=== PATIENT | male | born 1970 | race Caucasian/White ===

== ENCOUNTER 2020-11-19 09:09 | Inpatient (IN) | payer BC ==
[~2020-11-19] VITALS: Ht 175.3 cm; Wt 100.0 kg
[~2020-11-19 09:09] MED LIST: HYDR-4353 PO
[2020-11-19] MEDS ORDERED: magnesium 2GM in 50ml NS 50 ML IV ONE (09:40)
[2020-11-19] MEDS ORDERED: normal saline 1000ML IV soln IVB ONE (09:40)
[2020-11-19] MEDS ORDERED: aspirin 81mg tab.chew PO ONE (09:45)
[2020-11-19] MEDS ORDERED: diltiazem 5mg/ml 5ml inj. IV ONE ×4 (09:45→10:15)
[2020-11-19 10:19] LABS: BASOPHILS # (AUTO) 0.1 X10'3 (0-0.2); BASOPHILS % (AUTO) 0.5 % (0-1); EOSINOPHILS # (AUTO) 0.2 X10'3 (0-0.9); EOSINOPHILS % (AUTO) 1.3 % (0-6); HEMATOCRIT 48.4 % (42.0-52.0); HEMOGLOBIN 16.7 g/dl (14.0-17.9); LYMPHOCYTES # (AUTO) 2.1 X10'3 (1.1-4.8); LYMPHOCYTES % (AUTO) 16.6 % (21-51); MEAN CORPUSCULAR HEMOGLOBIN 28.9 PG (27.0-31.0); MEAN CORPUSCULAR HGB CONC 34.5 g/dL (33.0-36.5); MEAN CORPUSCULAR VOLUME 83.9 FL (78-98); MEAN PLATELET VOLUME 8.3 FL (7.4-10.4); MONOCYTES % (AUTO) 7.6 % (2-12); NEUTROPHILS # (AUTO) 9.2 X10'3 (1.8-7.7); PLATELET COUNT 228 X10'3 (140-440); RED BLOOD COUNT 5.77 X10'6 (4.70-6.10); RED CELL DISTRIBUTION WIDTH 13.6 % (11.5-14.5); WHITE BLOOD COUNT 12.4 X10'3 (4.5-11.0)
[2020-11-19 10:31] LABS: PARTIAL THROMBOPLASTIN TIME 25 SECONDS (22-32)
[2020-11-19 10:36] LABS: ALANINE AMINOTRANSFERASE 65 U/L (12-78); ALBUMIN/GLOBULIN RATIO 1.1 (1.1-1.5); ALKALINE PHOSPHATASE 81 IU/L (46-116); ANION GAP 10 (8-16); ASPARTATE AMINO TRANSFERASE 40 U/L (10-37); BILIRUBIN,TOTAL 0.8 MG/DL (0.1-1.0); BLOOD UREA NITROGEN 15 MG/DL (7-18); BUN/CREATININE RATIO 13.9 (5.4-32.0); CALCIUM 9.2 MG/DL (8.5-10.1); CHLORIDE 107 MMOL/L (99-107); CREATININE 1.08 MG/DL (0.60-1.10); GLUCOSE 106 MG/DL (70-104); POTASSIUM 4.7 MMOL/L (3.5-5.1); SODIUM 141 MMOL/L (135-145); TOTAL PROTEIN 7.6 G/DL (6.4-8.2); eGFR 72 ML/MIN
[2020-11-19 10:37] LABS: D-DIMER < 0.19 MG/L FEU (0-0.50)
[2020-11-19 10:43] LABS: ETHANOL < 0.010 GM/DL (0.0-0.010); MAGNESIUM 1.9 MG/DL (1.5-2.4)
[2020-11-19] MEDS ORDERED: enoxaparin 100mg/ml syringe SUBCUT ONE (11:00)
[2020-11-19 11:01] LABS: CLARITY,URINE CLEAR (Clear); COLOR,URINE YELLOW (Yellow); GLUCOSE, URINE NEGATIVE (Neg); KETONES,URINE NEGATIVE (Neg); LEUKOCYTE ESTERASE ,URINE NEGATIVE (Neg); NITRITES, URINE NEGATIVE (Neg); OCCULT BLOOD,URINE NEGATIVE (Neg); PH,URINE 5.5 (4.8-8.0); PROTEIN,URINE NEGATIVE (Neg); UROBILINOGEN,URINE 0.2 E.U/dL (0.2-1.0)
[2020-11-19 11:03] LABS: UA COLLECTION TYPE CLN CATCH MIDSTREAM
[2020-11-19 11:12] LABS: URINE AMPHETAMINE SCREEN NEGATIVE (Neg); URINE BARBITUATE SCREEN NEGATIVE (Neg); URINE BENZODIAZEPINES SCREEN NEGATIVE (Neg); URINE CANNABINOID SCREEN NEGATIVE (Neg); URINE COCAINE SCREEN NEGATIVE (Neg); URINE METHADONE SCREEN NEGATIVE (Neg); URINE OPIATE SCREEN NEGATIVE (Neg); URINE PHENCYCLIDINE SCREEN NEGATIVE (Neg)
[2020-11-19] MEDS: diltiazem-NS 100mg/100ml 100 ML IV PRN ×3 (11:19→18:42)
[2020-11-19] MEDS ORDERED: magnesium Cl slow-release 64mg tablet PO PRN (11:30)
[2020-11-19] MEDS ORDERED: potassium Cl 40MEQ/1/2NS 520ml 520 ML IV PRN ×2 (11:30)
[2020-11-19] MEDS ORDERED: potassium Cl 20 mEq SR tablet PO PRN ×2 (11:30)
[2020-11-19] MEDS ORDERED: magnesium 4gm in 100ml NS 100 ML IV PRN (11:30)
[2020-11-19] MEDS ORDERED: ondansetron/PF 4mg/2ml inj IV PRN (11:30)
[2020-11-19] MEDS ORDERED: morphine 2 MG/ML inj. syringe IV PRN (11:30)
[2020-11-19] MEDS ORDERED: acetaminophen 325mg tablet PO PRN (11:30)
[2020-11-19] MEDS ORDERED: magnesium 2GM in 50ml NS 50 ML IV PRN (11:30)
[2020-11-19] MEDS ORDERED: OXYC10TA47 PO (12:53)
[2020-11-19] MEDS ORDERED: amiodarone 200mg tablet PO SCH ×2 (17:40→19:30)
--- NOTE | 2020-11-19 18:45 | NUR ---
I have received report from Lyle CARPENTER by telephone from ER and had the opportunity to ask questions and awaiting patient's arrival to unit.
--- NOTE | 2020-11-19 19:21 | NUR ---
HR 180s PAGER ID: [phone] MESSAGE: [id number] Lyle Arora: HR going up to the 180s, lots of PVCs, Cardizem at 15ml/hr. Can we up the Cardizem or give a push? Vera CARPENTER [phone]
[2020-11-19] MEDS ORDERED: metoprolol succinate 25mg (24-HOUR) SR. Tablet PO SCH (19:30)
[2020-11-19] MEDS ORDERED: metoprolol tartrate 1mg/ml inj IV ONE (19:30)
[2020-11-19] MEDS ORDERED: LORazepam 2 mg/ml vial IV PRN (19:35)
[2020-11-19 19:38] VITALS: BP 142/71
[2020-11-19] MEDS ORDERED: amiodarone 150mg/dext, iso-os 100 ML IV ONE (19:55)
[2020-11-19 20:00] VITALS: BP 134/86
[2020-11-19] MEDS ORDERED: metoprolol tartrate 25mg tablet PO SCH (20:00)
[2020-11-19] MEDS: K and/or MAG REPLACEMENT MC SCH (20:00)
[2020-11-19 21:00] VITALS: BP 150/94
--- NOTE | 2020-11-19 21:00 | NUR ---
NEW ORDERS MD Martinez telephoned new orders: Stop Cardizem drip and start on Amiodarone drip with loading dose and continue by protocol. To discontinue PO Amiodarone, Toprol XL, and Metoprolol. MD Martinez also stated that she will call for cardiology consult with MD Vega. MD Vega came to see the patient. is aware of V-tach runs and heart rate changes, also that the Cardizem drip was stopped and Amiodarone loading dose has already been started. MD Vega ordered for echo in AM, lab draws for T4/3 and TSH to be drawn, also start the Amiodarone drip at 2mg/hour. MD Vega also stated that he does not want to be called tonight if the patient converts to sinus rhythm.
[2020-11-19] MEDS: amiodarone/D5 360MG/200ML BAG 200 ML IV SCH (21:01)
[2020-11-19 22:00] VITALS: BP 141/98
--- NOTE | 2020-11-19 22:33 | NUR ---
Troponin 0.59 PAGER ID: [phone] MESSAGE: [id number] Lyle Arora: Troponin 0.59, still trending up, would you like to order another one? VANCE Martinez called and changed orders, patient now on Amiodarone drip; starting at 2mg/min per MD Vega orders. eVra CARPENTER [phone]
[2020-11-19 23:00] VITALS: BP 138/107
[2020-11-19] MEDS: LORazepam 1 MG tablet PO PRN (23:13)
[2020-11-20] VITALS (12 sets, daily range): BP systolic 117–159; BP diastolic 85–106
[2020-11-20] MEDS: amiodarone/D5 360MG/200ML BAG 200 ML IV SCH ×9 (00:06→23:12)
--- NOTE | 2020-11-20 03:04 | NUR ---
Amiodarone protocol Per protocol, the patient's dose is to be half. Amiodarone is decreased to 1mg/min. Will continue to monitor patient.
--- NOTE | 2020-11-20 04:44 | NUR ---
Vtach runs PAGER ID: [phone] MESSAGE: [id number] Lyle Arora: Amiodarone was decreased from 2 to 1mg/min per protocol and is now having long runs of v tach. Would you like me to change it back to 2? Vera CARPENTER [phone]
--- NOTE | 2020-11-20 05:49 | NUR ---
Chest pain/pressure PAGER ID: [phone] MESSAGE: [id number] UlyssesLyle: HR 140s, Afib with BBB, Patient now states he has a feeling of pressure on his chest, pain of 4-5 and doesn't want pain medication. Would you like to order anything? Vera CARPENTER [phone]
--- NOTE | 2020-11-20 05:52 | NUR ---
No new orders MD Leigh called back stating that "if the patient isn't concerned, we will not be concerned and to keep an eye of the vital signs." patient is stating that he is okay and doesn't want pain medications. Will continue to monitor.
--- NOTE | 2020-11-20 06:00 | NUR ---
Problems reprioritized. Patient report given, questions answered & plan of care reviewed with Johanny CARPENTER. Patient stated that chest pain was worse and would like pain medication for it, pain level 5 that comes and goes, morphine was given.
--- NOTE | 2020-11-20 06:40 | NUR ---
Patient in room PCU 3012. I have received report from Vera CARPENTER and had the opportunity to ask questions and assume patient care.
--- NOTE | 2020-11-20 06:55 | NUR ---
Page Sent promotional table spacer PAGER ID: [phone] MESSAGE: [id number] [place]. Pt HR trending 150-160. BP 114/93. C/o of chest pressure. Morphine given and he feels a little better. Pt in Afib with BBB. Pt on amio gtt @2 . Johanny [phone]
[2020-11-20] MEDS ORDERED: metoprolol tartrate 1mg/ml inj IV ONE (07:45)
[2020-11-20 07:52] LABS: BASOPHILS % (AUTO) 0.4 % (0-1); EOSINOPHILS # (AUTO) 0.1 X10'3 (0-0.9); EOSINOPHILS % (AUTO) 0.9 % (0-6); HEMATOCRIT 46.3 % (42.0-52.0); LYMPHOCYTES # (AUTO) 1.5 X10'3 (1.1-4.8); LYMPHOCYTES % (AUTO) 11.3 % (21-51); MEAN CORPUSCULAR HEMOGLOBIN 29.1 PG (27.0-31.0); MEAN CORPUSCULAR HGB CONC 34.6 g/dL (33.0-36.5); MEAN CORPUSCULAR VOLUME 84.2 FL (78-98); MEAN PLATELET VOLUME 8.8 FL (7.4-10.4); MONOCYTES # (AUTO) 0.8 X10'3 (0-0.9); MONOCYTES % (AUTO) 6.3 % (2-12); NEUTROPHILS # (AUTO) 10.7 X10'3 (1.8-7.7); NEUTROPHILS % (AUTO) 81.1 % (42-75); PLATELET COUNT 195 X10'3 (140-440); RED CELL DISTRIBUTION WIDTH 13.5 % (11.5-14.5); WHITE BLOOD COUNT 13.2 X10'3 (4.5-11.0)
[2020-11-20] MEDS: nitroGLYCERIN 0.4mg/hour patch TD SCH (08:00)
[2020-11-20] MEDS ORDERED: amiodarone 200mg tablet PO SCH (08:00)
[2020-11-20] MEDS: K and/or MAG REPLACEMENT MC SCH ×2 (08:00→20:00)
[2020-11-20 08:29] LABS: ALBUMIN 3.5 G/DL (3.4-5.0); ANION GAP 9 (8-16); BLOOD UREA NITROGEN 14 MG/DL (7-18); BUN/CREATININE RATIO 15.1 (5.4-32.0); CALCIUM 8.4 MG/DL (8.5-10.1); CHLORIDE 106 MMOL/L (99-107); CHOL/HDL RATIO 3.3 (0.00-4.99); CHOLESTEROL 157 MG/DL (0-200); CREATININE 0.93 MG/DL (0.60-1.10); GLUCOSE 115 MG/DL (70-104); HDL CHOLESTEROL 47 MG/DL (35-60); LDL CHOLESTEROL 75 MG/DL (50-100); LIPASE 85 U/L (73-393); MAGNESIUM 2.1 MG/DL (1.5-2.4); POTASSIUM 3.6 MMOL/L (3.5-5.1); SODIUM 139 MMOL/L (135-145); TRIGLYCERIDES 275 MG/DL (20-135); eGFR 86 ML/MIN
[2020-11-20] MEDS ORDERED: oxyCODONE IR 5mg (immed. release) tablet PO PRN (15:05)
[2020-11-20] MEDS: metoprolol tartrate 25mg tablet PO SCH ×2 (15:29→19:21)
[2020-11-20] MEDS ORDERED: ondansetron 4mg rapidly disintigrating tab PO PRN (15:50)
--- NOTE | 2020-11-20 18:00 | NUR ---
Patient in room PCU 3012. I have received report from Kayleigh CARPENTER and had the opportunity to ask questions and assume patient care.
--- NOTE | 2020-11-20 18:01 | NUR ---
Problems reprioritized. Patient report given, questions answered & plan of care reviewed with Vera CARPENTER.
[2020-11-20] MEDS: LORazepam 1 MG tablet PO PRN (22:22)
[2020-11-21] VITALS: BP 144/106
[2020-11-21] MEDS: amiodarone/D5 360MG/200ML BAG 200 ML IV SCH ×2 (01:40→04:50)
[2020-11-21 02:00] VITALS: BP 133/88
[2020-11-21 04:00] VITALS: BP 125/92
--- NOTE | 2020-11-21 06:15 | NUR ---
Problems reprioritized. Patient report given, questions answered & plan of care reviewed with Kayleigh CARPENTER.
--- NOTE | 2020-11-21 06:17 | NUR ---
Patient in room PCU 3012. I have received report from Vera CARPENTER and had the opportunity to ask questions and assume patient care.
[2020-11-21 07:00] VITALS: BP 164/109
[2020-11-21] MEDS: metoprolol tartrate 25mg tablet PO SCH (07:10)
[2020-11-21] MEDS: nitroGLYCERIN 0.4mg/hour patch TD SCH (07:11)
[2020-11-21] MEDS ORDERED: amiodarone 200mg tablet PO SCH (08:00)
[2020-11-21] MEDS: K and/or MAG REPLACEMENT MC SCH (08:00)
[2020-11-21 08:02] LABS: BASOPHILS % (AUTO) 0.3 % (0-1); EOSINOPHILS # (AUTO) 0.1 X10'3 (0-0.9); EOSINOPHILS % (AUTO) 0.7 % (0-6); HEMATOCRIT 45.7 % (42.0-52.0); HEMOGLOBIN 15.9 g/dl (14.0-17.9); LYMPHOCYTES % (AUTO) 12.1 % (21-51); MEAN CORPUSCULAR HEMOGLOBIN 29.4 PG (27.0-31.0); MEAN CORPUSCULAR HGB CONC 34.9 g/dL (33.0-36.5); MEAN CORPUSCULAR VOLUME 84.3 FL (78-98); MEAN PLATELET VOLUME 8.4 FL (7.4-10.4); MONOCYTES # (AUTO) 0.6 X10'3 (0-0.9); NEUTROPHILS # (AUTO) 6.7 X10'3 (1.8-7.7); NEUTROPHILS % (AUTO) 79.9 % (42-75); PLATELET COUNT 162 X10'3 (140-440); RED BLOOD COUNT 5.42 X10'6 (4.70-6.10); RED CELL DISTRIBUTION WIDTH 13.2 % (11.5-14.5); WHITE BLOOD COUNT 8.4 X10'3 (4.5-11.0)
[2020-11-21 08:05] LABS: ALBUMIN 3.3 G/DL (3.4-5.0); ANION GAP 6 (8-16); BLOOD UREA NITROGEN 9 MG/DL (7-18); CHLORIDE 105 MMOL/L (99-107); GLUCOSE 103 MG/DL (70-104); MAGNESIUM 2.4 MG/DL (1.5-2.4); POTASSIUM 3.6 MMOL/L (3.5-5.1); SODIUM 140 MMOL/L (135-145); TOTAL CARBON DIOXIDE 28.6 MMOL/L (24-32); eGFR 79 ML/MIN
--- NOTE | 2020-11-21 08:34 | NUR ---
amio gtt stopped at 0815
[2020-11-21 11:00] VITALS: BP 141/96
[2020-11-21] MEDS ORDERED: metoprolol tartrate tablet PO (11:42)
[2020-11-21] MEDS ORDERED: AMIO200T67 PO (11:42)
[2020-11-21] MEDS ORDERED: APIX5TAB3 PO (11:43)
--- NOTE | 2020-11-21 14:08 | NUR ---
patient dc to home. his son picked him up, PIV was removed with cannula intact. Patient has appt with [facility] on next . DC instructions were reviewed with the patient and he verbalized understanding of worsening s/s and when to call his doc or come back to the ED. pt alert, oriented, and appropriated at time of dc.
--- NOTE | 2020-11-21 17:31 | NUR ---
had to get back into chart to see metoprolol rx so i could call it in to [facility] it did not get sent over with the others
== END 2020-11-21 13:38 | disposition home or self-care (01) | DRG 281 ==
LOC: ER 09:10 → ED HOLD 11:26 → PCU 3S 18:00
PROVIDERS: ADMIT Internal Medicine; ATTEND Internal Medicine
DX: I21.4 Non-ST elevation (NSTEMI) myocardial infarction (principal); I42.9 Cardiomyopathy, unspecified; I47.1 Supraventricular tachycardia; I21.A1 Myocardial infarction type 2; I48.0 Paroxysmal atrial fibrillation; F10.10 Alcohol abuse, uncomplicated; F32.9 Major depressive disorder, single episode, unspecified; M54.9 Dorsalgia, unspecified; G89.29 Other chronic pain; Z79.01 Long term (current) use of anticoagulants; Z79.82 Long term (current) use of aspirin; Z79.899 Other long term (current) drug therapy; Z88.8 Allergy status to other drugs, medicaments and biological substances
CPT/HCPCS: 36415; 71045; 80048; 80053; 80061; 80305; 80320; 81003; 83690; 83735; 83880; 84439; 84443; 84479; 84484; 85025; 85379; 85610; 85730; 87081; 93005; 93306; 93308; 96365; 96375; 99291; G0378; J1650; J2270; J3475; J3490; J7030

== ENCOUNTER 2021-07-02 12:17 | Inpatient (IN) | payer BC ==
[~2021-07-02] VITALS: Ht 175.3 cm; Wt 95.5 kg
[~2021-07-02 12:17] MED LIST changes: +AMIO200T67 PO; +APIX5TAB3 PO; -HYDR-4353 PO; +OXYC10TA47 PO; +metoprolol tartrate tablet PO
[2021-07-02 13:08] LABS: BASOPHILS % (AUTO) 0.4 % (0-1); EOSINOPHILS % (AUTO) 0.3 % (0-6); HEMOGLOBIN 16.8 g/dl (14.0-17.9); LYMPHOCYTES # (AUTO) 1.5 X10'3 (1.1-4.8); LYMPHOCYTES % (AUTO) 13.4 % (21-51); MEAN CORPUSCULAR HEMOGLOBIN 28.9 PG (27.0-31.0); MEAN CORPUSCULAR HGB CONC 34.4 g/dL (33.0-36.5); MEAN CORPUSCULAR VOLUME 84.2 FL (78-98); MEAN PLATELET VOLUME 8.2 FL (7.4-10.4); MONOCYTES # (AUTO) 0.9 X10'3 (0-0.9); MONOCYTES % (AUTO) 8.4 % (2-12); NEUTROPHILS # (AUTO) 8.6 X10'3 (1.8-7.7); NEUTROPHILS % (AUTO) 77.5 % (42-75); PLATELET COUNT 252 X10'3 (140-440); RED BLOOD COUNT 5.82 X10'6 (4.70-6.10); WHITE BLOOD COUNT 11.1 X10'3 (4.5-11.0)
[2021-07-02 13:25] LABS: ALANINE AMINOTRANSFERASE 42 U/L (12-78); ALBUMIN 3.5 G/DL (3.4-5.0); ALKALINE PHOSPHATASE 85 IU/L (46-116); ANION GAP 10 (8-16); ASPARTATE AMINO TRANSFERASE 28 U/L (10-37); BILIRUBIN,TOTAL 1.5 MG/DL (0.1-1.0); BLOOD UREA NITROGEN 15 MG/DL (7-18); BUN/CREATININE RATIO 11.7 (5.4-32.0); CALCIUM 8.1 MG/DL (8.5-10.1); CHLORIDE 106 MMOL/L (99-107); CREATININE 1.28 MG/DL (0.60-1.10); GLUCOSE 127 MG/DL (70-104); POTASSIUM 3.9 MMOL/L (3.5-5.1); SODIUM 141 MMOL/L (135-145); TOTAL CARBON DIOXIDE 24.6 MMOL/L (24-32); eGFR 59 ML/MIN
[2021-07-02 13:32] LABS: MAGNESIUM 2.3 MG/DL (1.5-2.4)
--- NOTE | 2021-07-02 14:44 | NUR ---
First interaction with pt. at my arrival in room pt's HR 185/min tachy AVR. Primary RN at bedside at this time notified and Md Isaacs notified/
[2021-07-02] MEDS: metoprolol tartrate 1mg/ml inj IV PRN ×3 (14:50→15:39)
--- NOTE | 2021-07-02 15:01 | NUR ---
Pt placed on head of conservation cart and adult pads placed on chest
[2021-07-02] MEDS ORDERED: aspirin 81mg tab.chew PO ONE (15:35)
[2021-07-02] MEDS ORDERED: ondansetron/PF 4mg/2ml inj IV PRN (16:40)
[2021-07-02] MEDS ORDERED: potassium Cl 40MEQ/1/2NS 520ml 520 ML IV PRN ×2 (16:40)
[2021-07-02] MEDS ORDERED: mag hydrox/Alum hydrox/simeth 30ml oral suspension PO PRN (16:40)
[2021-07-02] MEDS ORDERED: bisacodyl 10mg suppository rectal RC PRN (16:40)
[2021-07-02] MEDS ORDERED: metoclopramide 5 mg/ml inj IV PRN (16:40)
[2021-07-02] MEDS ORDERED: magnesium Cl slow-release 64mg tablet PO PRN (16:40)
[2021-07-02] MEDS ORDERED: potassium Cl 20 mEq SR tablet PO PRN ×2 (16:40)
[2021-07-02] MEDS ORDERED: magnesium 2GM in 50ml NS 50 ML IV PRN (16:40)
[2021-07-02] MEDS ORDERED: magnesium hydroxide 30ml (MOM) UD suspension PO PRN (16:40)
[2021-07-02] MEDS ORDERED: acetaminophen 325mg tablet PO PRN (16:40)
[2021-07-02] MEDS ORDERED: magnesium 4gm in 100ml NS 100 ML IV PRN (16:40)
[2021-07-02] MEDS ORDERED: APIX5TAB3 PO (16:56)
[2021-07-02] MEDS ORDERED: OXYC5CAP19 PO (16:56)
[2021-07-02] MEDS ORDERED: FLEC100T PO (16:56)
[2021-07-02] MEDS ORDERED: METO25TA6 PO (16:56)
[2021-07-02] MEDS ORDERED: oxyCODONE IR 5mg (immed. release) tablet PO PRN (17:00)
[2021-07-02] MEDS ORDERED: diltiazem-NS 100mg/100ml 100 ML IV SCH ×2 (17:15→21:10)
--- NOTE | 2021-07-02 18:03 | NUR ---
PAGE SENT TO DR HUBBARD REGARDING HR 155. PAT SLEEPING, NO SIGNS OF DISTRESS NOTED.
--- NOTE | 2021-07-02 18:09 | NUR ---
SPOKE WITH DR STEVIE MD TO ENTER ORDERS.
[2021-07-02] MEDS ORDERED: digoxin 250mcg/ml 2ml ampule IV ONE (18:40)
[2021-07-02] MEDS: K and/or MAG REPLACEMENT MC SCH (20:00)
[2021-07-02] MEDS: apixaban 5mg tablet PO SCH (20:39)
[2021-07-02] MEDS: metoprolol tartrate 25mg tablet PO SCH (20:40)
[2021-07-02] MEDS ORDERED: temazepam 15mg capsule PO PRN (21:00)
--- NOTE | 2021-07-02 21:09 | NUR ---
Hannah Angelms [phone]
[2021-07-02] MEDS ORDERED: amiodarone 150mg/dext, iso-os 100 ML IV ONE (21:50)
[2021-07-02] MEDS: amiodarone/D5 360MG/200ML BAG 200 ML IV SCH (22:10)
--- NOTE | 2021-07-02 22:31 | NUR ---
Conversion to NSR after initiation of amio drip
[2021-07-03 00:27] LABS: BASOPHILS # (AUTO) 0.1 X10'3 (0-0.2); BASOPHILS % (AUTO) 0.6 % (0-1); EOSINOPHILS # (AUTO) 0.1 X10'3 (0-0.9); HEMATOCRIT 45.2 % (42.0-52.0); HEMOGLOBIN 15.7 g/dl (14.0-17.9); LYMPHOCYTES # (AUTO) 1.9 X10'3 (1.1-4.8); LYMPHOCYTES % (AUTO) 21.2 % (21-51); MEAN CORPUSCULAR HEMOGLOBIN 28.8 PG (27.0-31.0); MEAN CORPUSCULAR HGB CONC 34.8 g/dL (33.0-36.5); MEAN CORPUSCULAR VOLUME 82.8 FL (78-98); MEAN PLATELET VOLUME 8.2 FL (7.4-10.4); MONOCYTES # (AUTO) 0.7 X10'3 (0-0.9); MONOCYTES % (AUTO) 8.1 % (2-12); NEUTROPHILS # (AUTO) 6.1 X10'3 (1.8-7.7); NEUTROPHILS % (AUTO) 69.1 % (42-75); PLATELET COUNT 180 X10'3 (140-440); RED BLOOD COUNT 5.46 X10'6 (4.70-6.10); RED CELL DISTRIBUTION WIDTH 14.1 % (11.5-14.5); WHITE BLOOD COUNT 8.9 X10'3 (4.5-11.0)
[2021-07-03 00:47] LABS: ALANINE AMINOTRANSFERASE 35 U/L (12-78); ALBUMIN 3.1 G/DL (3.4-5.0); ALBUMIN/GLOBULIN RATIO 0.9 (1.1-1.5); ALKALINE PHOSPHATASE 78 IU/L (46-116); ANION GAP 10 (8-16); ASPARTATE AMINO TRANSFERASE 24 U/L (10-37); BLOOD UREA NITROGEN 16 MG/DL (7-18); CALCIUM 7.9 MG/DL (8.5-10.1); CHLORIDE 107 MMOL/L (99-107); CREATININE 1.14 MG/DL (0.60-1.10); GLUCOSE 110 MG/DL (70-104); MAGNESIUM 2.2 MG/DL (1.5-2.4); POTASSIUM 3.7 MMOL/L (3.5-5.1); SODIUM 142 MMOL/L (135-145); TOTAL CARBON DIOXIDE 25.5 MMOL/L (24-32); TOTAL PROTEIN 6.5 G/DL (6.4-8.2); eGFR 68 ML/MIN
[2021-07-03 01:43] VITALS: BP 136/95
[2021-07-03 02:00] VITALS: BP 124/91
[2021-07-03] MEDS: digoxin 250mcg/ml 2ml ampule IV SCH ×2 (02:00→08:00)
--- NOTE | 2021-07-03 02:54 | NUR ---
PAGER ID: [phone] MESSAGE: Lyle Arora 50M [id number] Admit chest pn/Afib w/RVR. Pt in sinus rhythm, BP 135/92; HR 70. There is digoxin IV due now, do you want to hold? Thank you, Aleksandra [phone]
--- NOTE | 2021-07-03 02:55 | NUR ---
Dr Triana called back to hold the digoxin.
[2021-07-03 04:00] VITALS: BP 136/88
[2021-07-03] MEDS: amiodarone/D5 360MG/200ML BAG 200 ML IV SCH (04:25)
--- NOTE | 2021-07-03 06:27 | NUR ---
Patient in room U 3027. I have received report from Aleksandra CARPENTER and had the opportunity to ask questions and assume patient care. Patient sleeping in bed and in no acute distress.
--- NOTE | 2021-07-03 06:46 | NUR ---
Problems reprioritized. Patient report given, questions answered & plan of care reviewed with PAULINE Juan.
[2021-07-03 07:00] VITALS: BP 143/96
[2021-07-03] MEDS: K and/or MAG REPLACEMENT MC SCH (07:50)
[2021-07-03] MEDS: metoprolol tartrate 25mg tablet PO SCH (07:55)
[2021-07-03] MEDS: apixaban 5mg tablet PO SCH (07:55)
[2021-07-03 11:00] VITALS: BP 131/96
[2021-07-03] MEDS ORDERED: FLEC50TA28 PO (12:22)
[2021-07-03] MEDS ORDERED: flecainide 50mg tablet PO SCH (12:35)
--- NOTE | 2021-07-03 15:38 | NUR ---
Patient was dc to home and left with his . PIV was removed with cannula intact. RX were sent to [facility] on [address] in [place]. DC instructions and warning s/s were reviewed with the patient and he verbalized understanding. Patient is alert, oriented, and appropriate at time of dc.
[2021-07-04] MEDS ORDERED: digoxin 250mcg/ml 2ml ampule IV SCH (08:00)
== END 2021-07-03 15:16 | disposition home or self-care (01) | DRG 281 ==
LOC: ER 12:19 → ED HOLD 16:39 → UNDOADMIN 16:39 → EDBEDREQ 07-03 00:54 → PCU 3S 07-03 01:15
PROVIDERS: ADMIT Family Medicine; ATTEND Family Medicine
DX: I48.0 Paroxysmal atrial fibrillation (principal); I21.A1 Myocardial infarction type 2; N17.9 Acute kidney failure, unspecified; I10 Essential (primary) hypertension; I44.7 Left bundle-branch block, unspecified; F32.9 Major depressive disorder, single episode, unspecified; G89.29 Other chronic pain; M54.9 Dorsalgia, unspecified; R00.0 Tachycardia, unspecified; Z79.899 Other long term (current) drug therapy; Z79.01 Long term (current) use of anticoagulants
CPT/HCPCS: 36415; 71045; 80053; 80162; 83735; 83880; 84484; 85025; 87081; 93005; 96375; 99291; G0378; J1160; J3490

== ENCOUNTER 2023-01-03 07:19 | Emergency (ER) | payer BC ==
[~2023-01-03] VITALS: Ht 175.3 cm; Wt 100.0 kg
[~2023-01-03 07:19] MED LIST changes: -AMIO200T67 PO; +FLEC50TA28 PO; +METO25TA6 PO; -OXYC10TA47 PO; +OXYC5CAP19 PO; -metoprolol tartrate tablet PO
[2023-01-03] MEDS ORDERED: diltiazem 5mg/ml 5ml inj. IV ONE ×2 (07:35→08:40)
[2023-01-03] MEDS ORDERED: normal saline 1000ml 1,000 ML IV ONE (07:35)
[2023-01-03 07:45] LABS: BASOPHILS # (AUTO) 0.1 X10'3 (0-0.2); BASOPHILS % (AUTO) 0.4 % (0-1); EOSINOPHILS # (AUTO) 0.2 X10'3 (0-0.9); EOSINOPHILS % (AUTO) 1.3 % (0-6); HEMATOCRIT 51.6 % (42.0-52.0); HEMOGLOBIN 17.8 g/dl (14.0-17.9); LYMPHOCYTES # (AUTO) 1.9 X10'3 (1.1-4.8); LYMPHOCYTES % (AUTO) 14.7 % (21-51); MEAN CORPUSCULAR HEMOGLOBIN 28.8 PG (27.0-31.0); MEAN CORPUSCULAR HGB CONC 34.6 g/dL (33.0-36.5); MEAN CORPUSCULAR VOLUME 83.4 FL (78-98); MEAN PLATELET VOLUME 7.8 FL (7.4-10.4); MONOCYTES # (AUTO) 1.1 X10'3 (0-0.9); MONOCYTES % (AUTO) 8.8 % (2-12); NEUTROPHILS # (AUTO) 9.5 X10'3 (1.8-7.7); NEUTROPHILS % (AUTO) 74.8 % (42-75); PLATELET COUNT 255 X10'3 (140-440); RED BLOOD COUNT 6.18 X10'6 (4.70-6.10); RED CELL DISTRIBUTION WIDTH 13.4 % (11.5-14.5); WHITE BLOOD COUNT 12.7 X10'3 (4.5-11.0)
[2023-01-03 07:59] LABS: ALANINE AMINOTRANSFERASE 50 U/L (12-78); ALBUMIN 4.5 G/DL (3.4-5.0); ALBUMIN/GLOBULIN RATIO 1.2 (1.1-1.5); ALKALINE PHOSPHATASE 87 IU/L (46-116); ANION GAP 6 (8-16); ASPARTATE AMINO TRANSFERASE 36 U/L (10-37); BILIRUBIN,TOTAL 0.7 MG/DL (0.1-1.0); BLOOD UREA NITROGEN 18 MG/DL (7-18); CALCIUM 9.4 MG/DL (8.5-10.1); CHLORIDE 105 MMOL/L (99-107); GLUCOSE 130 MG/DL (70-104); POTASSIUM 4.3 MMOL/L (3.5-5.1); SODIUM 138 MMOL/L (135-145); TOTAL CARBON DIOXIDE 27.4 MMOL/L (24-32); TOTAL PROTEIN 8.2 G/DL (6.4-8.2); eGFR 64 ML/MIN
[2023-01-03 08:07] LABS: MAGNESIUM 2.2 MG/DL (1.5-2.4)
[2023-01-03] MEDS ORDERED: aspirin 325mg tablet PO ONE (08:45)
[2023-01-03] MEDS ORDERED: propofol 10mg/ml 20ml vial IV ONE (09:05)
[2023-01-03] MEDS ORDERED: metoprolol succinate 25mg (24-HOUR) SR. Tablet PO ONE (10:00)
--- NOTE | 2023-01-03 10:23 | NUR ---
PROVIDER PERFORMED CARDIOVERSION AT [facility]. TIME OUT WAS AT 0945. MODERATE SEDATION MEDCATION USED WAS DEPRIVAN. VS TAKEN Q5MIN. 4CC PUSH AT 0948. 3CC PUSH AT 0949. 3CC PUSH AT 0950. 3CC PUSH AT 0951. RESP STATUS MONITORED THROUGHOUT PROCEDURE. FIRST CARDIOVERSION ATTEMPTED AT 120VOLTS AT 0951. AFIB STILL SEEN ON MONITOR. SECOND ATTEMPT SUCCESSFUL AT 200 VOLTS AT 0952. PT SEEN IN NS ON THE MONITOR. VS RECORDED Q15 X2. THEN Q30 X2. WCTM.
[2023-01-03 10:56] VITALS: BP 120/80
== END 2023-01-03 10:59 | disposition home or self-care (01) ==
LOC: ER 07:19
DX: I48.20 Chronic atrial fibrillation, unspecified (principal); G89.29 Other chronic pain; M54.50 Low back pain, unspecified
CPT/HCPCS: 36415; 80053; 83735; 83880; 84484; 85025; 92960; 93005; 96361; 96374; 96376; 99152; 99285; J3490; J7030; 94760; A4620